=== PATIENT | female | born 1975 | race Two or more races ===

== ENCOUNTER 2025-03-18 13:49 | Emergency (ER) | payer OTHER ==
[~2025-03-18] VITALS: Ht 154.9 cm; Wt 70.3 kg
[2025-03-18 14:07] LABS: PLATELET COUNT (AUTO) 280 K/uL (179-408); RED BLOOD CELL COUNT(AUTO) 4.15 MIL/uL (3.63-4.92); RED CELL DISTRIBUTION WIDTH 14.0 % (12.3-17.7); WHITE BLOOD COUNT (AUTO) 5.6 K/uL (3.8-11.8)
[2025-03-18] MEDS ORDERED: LORAZEPAM 1 MG TABLET ONE (14:12)
[2025-03-18] MEDS: LORAZEPAM 0.5 MG TABLET PO ONE (14:15)
[2025-03-18] MEDS ORDERED: OXYCODONE/APAP 5-325 MG TABLET ONE (14:17)
[2025-03-18] MEDS: OXYCODONE/APAP 5-325 MG TABLET PO ONE (14:19)
[2025-03-18 14:21] LABS: CREATININE 0.5 mg/dL (0.6-1.3); SODIUM SERUM 141 mmol/L (136-145); UREA NITROGEN, BLOOD 13 mg/dL (7-18)
[2025-03-18 15:00] VITALS: BP 131/82
[2025-03-18] MEDS ORDERED: OXYC-128 PO (15:48)
[2025-03-18 17:04] VITALS: BP 131/82; O2SAT 96
== END 2025-03-18 16:22 | disposition home or self-care (01) ==
LOC: ER 13:49
DX: M94.0 Chondrocostal junction syndrome [Tietze] (principal); E83.51 Hypocalcemia; R05.9 Cough, unspecified; R07.2 Precordial pain; Z85.850 Personal history of malignant neoplasm of thyroid
CPT/HCPCS: 36415; 71045; 83735; 83970; 84484; 85025; A4606; A4663